=== PATIENT | female | born 1995 | race Caucasian/White ===

== ENCOUNTER → 2016-09-30 | Outpatient (CLI) | payer BC ==
[~2016-09-30] MED LIST: LEXAPRO10 MG PO; WELLBUTRIN SR100 M4 PO
[2016-09-30 12:25] VITALS: BP 128/60
[2016-09-30 15:10] VITALS: BP 126/74
--- NOTE | 2016-09-30 16:40 | NUR ---
Emiliano Laboy APRN notified of lab results and updated on patient status. Patient is alert and oriented. Reports decreased dizziness and pain. Nausea is decreased but still present. Work note provided. Ok to discharge patient at this time per Emiliano Laboy APRN.
== END ==
LOC: AMSURD 12:04
DX: E86.0 Dehydration (principal); J02.0 Streptococcal pharyngitis; R11.2 Nausea with vomiting, unspecified
CPT/HCPCS: J0696; J1885; J2405; J7030

== ENCOUNTER 2017-07-18 15:48 | Emergency (ER) | payer BC ==
[~2017-07-18] VITALS: Ht 165.1 cm; Wt 86.4 kg
[2017-07-18] MEDS ORDERED: GLUCOPHAGE PO (16:23)
[2017-07-18 16:57] LABS: EOS # 0.1 (0.04-0.40); EOS % 1.3 % (1.0-5.0); HEMATOCRIT 38.1 % (37.0-47.0); HEMOGLOBIN 12.6 g/dL (12.5-16.0); LYMPH# 2.1 (1.50-4.00); MEAN CELL VOLUME 89 fl (78-100); MEAN CORPUSCULAR HEMOGLOBIN 30 pg (27-31); MEAN CORPUSCULAR HGB CONC 33 g/dL (33-37); MEAN PLATELET VOLUME 9.1 fl (7.4-10.4); MONO # 0.6 (0.20-0.80); NEU # 7.4 (1.40-6.50); PLATELET COUNT 379 K/mm3 (130-400); RED BLOOD COUNT 4.27 M/mm3 (4.10-5.30); RED CELL DISTRIBUTION WIDTH 12.7 % (11.5-14.5); WHITE BLOOD COUNT 10.3 K/mm3 (4.8-10.8)
[2017-07-18 17:10] LABS: ALBUMIN 4.2 g/dL (3.5-5.0); CALCIUM 9.2 mg/dL (8.4-10.2); TOTAL BILIRUBIN 0.2 mg/dL (0.2-1.3); TOTAL PROTEIN 7.6 g/dL (6.3-8.2)
[2017-07-18 17:43] VITALS: BP 118/70
== END 2017-07-18 17:47 | disposition home or self-care (01) ==
LOC: ED 15:48
PROVIDERS: Family Medicine
DX: R07.89 Other chest pain (principal)
CPT/HCPCS: J1885